=== PATIENT | male | born 1970 | race Caucasian/White ===

== ENCOUNTER → 2016-06-07 | Outpatient (CLI) | payer OTHER ==
[~2016-06-07] MED LIST: ACETAMINOPHEN PO; COUMADIN5 MG PO; COUMADIN7.5 MG PO; FERRO-TIME325 MG PO; FERROUS GLUCON324 M1 PO; FERROUS GLUCON324 MG PO; HYDROCODON-ACE1 EAC7 PO; IBUPROFEN M200 M1 PO; KEFLEX500 M1 PO; LEVAQUIN750 M1 PO; NORCO 10-325 TA1 TAB PO; NORCO1 TAB 10/3 PO; OXYCONTIN PO; PERCOCET10 PO; RIFAMPIN300 M1 PO; TYLENOL325 M1 PO; VANCOMYCIN IV; VANCOMYCIN1.5 GM/251 IV; XARELTO15 MG PO; ZYVOX600 MG PO
--- NOTE | ~2016-06-07 | CO ---
Unit #: [id number] #: [id number] Patient: JOSÉ MIGUEL POWELL [id number] [address] [address] [id number] O MR#: [id number] NAME: JOSÉ MIGUEL POWELL ROOM: Age: 46 Sex: M Admission Date: 06/07/2016 : 1970 Attending Physician: Hay Bloom M.D. Primary Care Physician: No Primary Care Physician Consultation Date: 06/07/2016 CONSULTATION REPORT REASON FOR CONSULTATION Preoperative medical evaluation prior to reimplant left total hip scheduled by Dr. Bloom for 06/12/16. HISTORY OF PRESENT ILLNESS The patient is a 46-year-old male who presents for preprocedural screening for reasons indicated above. He has a history of left total hip replacement with subsequent removal and placement of antibiotic spacer and subsequent right upper extremity cellulitis and right upper extremity DVT secondary to peripherally inserted central catheter line. Per review of the patient's discharge summary from this facility, discharge date 05/03/16, patient's PICC line was removed by interventional radiology and the patient was discharged home on Levaquin 750 mg orally for two weeks based on catheter tip culture positive for Klebsiella pneumoniae sensitive to Levaquin. The patient was also discharged home on Xarelto 10 mg p.o. daily for PICC line associated DVT of the right upper extremity. He continues to take the Xarelto as discharge instructions were to continue this for three months period of time. A culture collected from the patient's left hip on February 29, 2016 was positive for MRSA and the patient was treated with a total of six weeks minus two days of IV vancomycin. The patient was followed by [facility] at that time for a three times daily IV vancomycin infusion. Per review of information on the discharge summary from the last admission, the patient refused [facility] services the last two days of the antibiotic therapy and he was discharged from their service for noncompliance. The patient has no complaints other than left hip area pain today. He has been evaluated by Dr. Bloom and scheduled for the above reference procedure. PAST MEDICAL HISTORY 1. Osteoarthritis. 2. Chronic back pain. 3. Chronic anemia. 4. Right upper extremity PICC line associated DVT, on Xarelto. 5. History of PICC catheter tip Klebsiella pneumoniae infection, treated with two weeks of oral Levaquin upon last discharge. 6. 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 7. History of noncompliance with [facility] home health services for the last two days of IV antibiotic therapy. PAST SURGICAL HISTORY 1. Left hip arthroplasty. 2. Spinal fusion L1 to L5. 3. Right hip fusion. Unit #: [id number] #: [id number] Patient: JOSÉ MIGUEL POWELL 4. Right shoulder surgery. 5. Left knee surgery. 6. Cholecystectomy. 7. Lumbar spacer placed. Please note - patient denies a personal and family history of complications to anesthesia. ALLERGIES No known medication allergies. Denies latex allergies. CURRENT MEDICATIONS 1. Xarelto 20 mg p.o. every evening (need to clarify this dose). Also, order received from Dr. Martinez to discontinue this medication today. 2. Ibuprofen 200 mg p.o. every four hours as needed for pain. 3. Bradford 10/325 mg tablet, one p.o. q.3 hours p.r.n. pain. SOCIAL HISTORY Denies tobacco use, ETOH and illicit drug use. FAMILY HISTORY Per review of Dr. Bloom's office note: Mother - cancer. Father - hypertension and hyperlipidemia. Sister - diabetes. REVIEW OF SYSTEMS The patient complains of chronic low back pain. A ten point review of systems was conducted and otherwise negative except as indicated under History of Present Illness above. PHYSICAL EXAMINATION GENERAL: 46-year-old male awake, alert, in no acute distress. Ambulates without weight bearing on the left lower extremity with crutches. VITAL SIGNS: Temperature 96.2, heart rate 75, respiratory rate 18, blood pressure 145/70. Oxygen saturation 98% on room air. HEENT: Atraumatic, normocephalic. Sclerae anicteric. No discharge from eyes, ears or nares. No preauricular, postauricular, tonsillar or submental anterior or posterior cervical adenopathy. ENDOCRINE: No thyromegaly, thyroid nodules or tenderness. RESPIRATORY: Clear to auscultation in all schmidt bilaterally without wheezes, rhonchi or rales. CARDIOVASCULAR: S1, S2. Regular rate and rhythm without murmur or rub. GI: Bowel sounds positive x4 quadrants. Soft, nontender, nondistended. EXTREMITIES: No edema, cyanosis or clubbing. Strength 5/5 all extremities bilaterally with flexion/extension with exception of left lower extremity which is limited secondary to pain with movement. NEURO: Alert and oriented x3. Speech clear. Cranial nerves II-XII grossly intact. Follows commands. Hand grasp 2+ bilaterally. DIAGNOSTIC STUDIES LABORATORY: WBC 5.3, hemoglobin 11.2, hematocrit 35.3, platelet count 219,000, sed rate 29, WBC 5.3, hemoglobin 11.2, hematocrit 35.3, platelets 219,000. Sodium 136, potassium 4.6, chloride 101, CO2 27, glucose 83, BUN 16, creatinine 0.7, calcium 9.5, AST 71, ALT 67, alkaline phos. 100, bili total 0.5, total protein 8.3, albumin 4.3. Blood type 1+. Antibody screen negative. Unit #: [id number] #: [id number] Patient: JOSÉ MIGUEL POWELL C-reactive protein less than 0.5. Urinalysis negative with culture not indicated. PT 11.5, INR 1.1. MRSA nasal swab report pending at this time. IMAGING: Two-view chest x-ray report pending at this time. CARDIOVASCULAR: 12-lead EKG, date of study 02/29/16 - normal sinus rhythm, normal ECG, confirmed by Dr. Kapoor. IMPRESSION The patient is a 46-year-old male who presents to preprocedure screening for: 1. Preoperative evaluation prior to reimplant left total hip arthroplasty: The patient's Waller Revised Cardiac Risk Index is equal to 0.4%. This represents the patient's perioperative risk of cardiac , fatal or nonfatal myocardial infarction, cardiopulmonary arrest, arrhythmia and/or pulmonary edema. This has been discussed in detail with the patient. He wishes to proceed with surgery as scheduled at this time. The patient tells me that he has tolerated previous operative procedures without incident. 2. Status post removal of infected left total hip, placement of antibiotic spacer 02/29/16: Left hip culture positive for MRSA, status post IV vancomycin x6 weeks minus 2 days of therapy. The patient is afebrile, not hypotensive. WBC is within normal range. Neither tachycardic nor tachypneic today. 3. Recent PICC catheter tip Klebsiella pneumoniae infection, status post treatment with Levaquin by mouth for two weeks total. Final blood cultures collected on 04/30/16 admission x2 - no growth after five days. 4. Recent PICC associated right upper extremity DVT. The patient has been on Xarelto since discharge on May 03. I have discussed this with Dr. Martinez, the original prescribing physician of this medication, and per his order, the patient will discontinue Xarelto today. I have discussed this with the patient and he has verbalized understanding of this information. 5. Chronic anemia: The patient's H and H are stable at this time. 6. History of chronic back pain, controlled. 7. History of noncompliance with [facility] home health services after a previous discharge from this facility. Thank you for allowing us to participate in the care of this patient. Will gladly follow him for postop medical management pending order of Dr. Bloom. Dictated by... Ghazal Worrell A.P.R.N. for Edin Napoles/le TD: 06/08/2016 08:06 JOB #: [id number] Unit #: [id number] #: [id number] Patient: JOSÉ MIGUEL POWELL CONSULTATION REPORT Page 1 of 1 X Ghazal Worrell APRN X CONSULTATION REPORT
--- NOTE | ~2016-06-07 | CR63 ---
[facility] A Service of [facility] & [facility] RADIOLOGY TEXT RESULTS PATIENT: JOSÉ MIGUEL POWELL LOCATION: [facility] : [birth year] UNIT #: [id number] AGE: [address]: Hay Bloom MD SEX: M ORDER DR: [id number] [facility] [address] [place], [place] [address] [id number] O MR#: [id number] Acc #: [id number] NAME: JOSÉ MIGUEL POWELL : 1970 SEX: M STUDY DATE/TIME: 06/07/2016 12:53 UNIT: [facility] ROOM: STUDY DESCRIPTION: CR Chest 2 View Attending Physician: Hay Bloom M.D. Referring Physician: Hay Bloom M.D. Ordering Physician: Hay Bloom M.D. Primary Care Physician: No Primary Care Physician MEDICAL IMAGING REPORT This report is preliminary unless electronic signature is present EXAM 2-view chest INDICATIONS Preoperative evaluation for hip surgery. PROCEDURE Frontal and lateral views of the chest. COMPARISON None. FINDINGS Heart size normal. Lungs clear. No pleural fluid or pneumothorax. IMPRESSION No active process. Dictated by... Antonino Rios M.D. THIS IS AN ELECTRONICALLY VERIFIED REPORT Antonino Rios M.D. at 06/09/2016 7:15 AM UMER/demian TD: 06/07/2016 17:45 JOB #: [id number] MEDICAL IMAGING REPORT Page 1 of 1 COPY
[2016-06-07 11:56] LABS: HEMATOCRIT 35.3 % (38.0-50.0); HEMOGLOBIN 11.2 gm/dL (13.0-16.0); MEAN CELL VOLUME 76.5 FL (83-96); MEAN CORPUSCULAR HEMOGLOBIN 24.2 PG (28-34); MEAN CORPUSCULAR HGB CONC 31.6 g/dL (30-36); MEAN PLATELET VOLUME 7.7 FL (6.5-11.5); RED BLOOD COUNT 4.61 X10e (3.90-5.60); RED CELL DISTRIBUTION WIDTH 16.7 % (11.0-15.5); WHITE BLOOD COUNT 5.3 X10e3 (4.0-10.5)
[2016-06-07 11:59] LABS: URINE APPEARANCE CLEAR; URINE BILIRUBIN NEG (NEG); URINE BLOOD NEG (NEG); URINE COLOR YELLOW; URINE GLUCOSE NEG (NEG); URINE KETONE NEG (NEG); URINE LEUKOCYTE ESTERASE NEG (NEG); URINE NITRATE NEG (NEG); URINE PH 5.5 (5-8); URINE PROTEIN NEG (NEG); URINE SOURCE CLEAN CATCH; URINE SPECIFIC GRAVITY 1.015 (1.003-1.035); URINE UROBILINOGEN 0.2 MG/DL (NEG)
[2016-06-07 12:02] LABS: CULTURE INDICATED? NO
[2016-06-07 12:19] LABS: INR 1.1; PROTHROMBIN TIME (PATIENT) 11.5 SECONDS (9.6-11.5)
[2016-06-07 13:43] LABS: ALBUMIN SERUM 4.3 g/dL (3.5-5.0); ALKALINE PHOSPHATASE 100 U/L (32-92); ALT (SGPT) 67 U/L (10-40); AST (SGOT) 71 U/L (10-42); BILIRUBIN,TOTAL 0.5 mg/dL (0.2-2.0); BLOOD UREA NITROGEN 16 mg/dL (9-23); BUN/CREATININE RATIO 22.85; CALCIUM SERUM 9.5 mg/dL (8.4-10.2); CARBON DIOXIDE 27 mmol/L (22-31); CHLORIDE 101 mmol/L (100-111); CREATININE SERUM 0.7 mg/dL (0.6-1.4); GLOM FILT RATE Estimated ABOVE60 mL/min (>60); GLUCOSE FASTING 83 mg/dL (70-110); POTASSIUM 4.6 mmol/L (3.5-5.1); PROTEIN TOTAL SERUM 8.3 g/dL (6.0-8.3); SODIUM 136 mmol/L (135-145)
== END | disposition home or self-care (01) ==
LOC: CAMB 11:04
PROVIDERS: Orthopaedic Surgery
DX: Z01.818 Encounter for other preprocedural examination (principal); M54.9 Dorsalgia, unspecified; G89.29 Other chronic pain; Z86.14 Personal history of Methicillin resistant Staphylococcus aureus infection
CPT/HCPCS: 36415; 71020; 80053; 81003; 85027; 85610; 85652; 86140; 86850; 86900; 86901; 87070

== ENCOUNTER 2016-06-12 09:46 | Inpatient (IN) | payer OTHER ==
--- NOTE | ~2016-06-12 | DS ---
Unit #: [id number] #: [id number] Patient: JOSÉ MIGUEL POWELL [id number] [address] [address] [id number] I MR#: [id number] NAME: JOSÉ MIGUEL POWELL ROOM: 457 Age: 46 Sex: M Admission Date: 06/12/2016 : 1970 Discharge Date: 06/14/2016 Attending Physician: Hay Bloom M.D. DISCHARGE SUMMARY ADMITTING DIAGNOSIS Resolved left total hip infection. DISCHARGE DIAGNOSIS Resolved left total hip infection. HOSPITAL COURSE On 06/12/2016, Mr. Powell underwent a left total hip reimplant. He tolerated the procedure well. He was transported to the 4th floor. He underwent physical therapy, medical management, and anticoagulation therapy. He is doing well and is ready to be discharged. DISPOSITION Stable at discharge. Discharged to home. DISCHARGE MEDICATIONS Medications on discharge include his routine home medications in addition to Percocet 10/325 and Coumadin 7.5 mg p.o. daily. FOLLOWUP INSTRUCTIONS Mr. Powell is going to be discharged home. PT and INRs to be drawn every Sunday and . Physical therapy is to be done for ambulation and dislocation precautions. The patient will need a followup appointment with Dr. Bloom in 6 weeks. Please call our office for that appointment date and time. Dictated by... Libertad Herrera. for Edin RappF/tigist TD: 06/15/2016 01:35 JOB #: [id number] Unit #: [id number] #: [id number] Patient: JOSÉ MIGUEL POWELL DISCHARGE SUMMARY Page 1 of 1 X Susan Corrigan DISCHARGE SUMMARY
--- NOTE | ~2016-06-12 | OR ---
Unit #: [id number] #: [id number] Patient: JOSÉ MIGUEL POWELL [id number] [facility]. [place], [place] [address] [id number] I MR#: [id number] NAME: JOSÉ MIGUEL POWELL ROOM: 457 Date of Procedure: 06/12/2016 Admission Date: 06/12/2016 Surgeon: Hay Bloom M.D. : 1970 Attending Physician: Hay Bloom M.D. OPERATIVE REPORT PREOPERATIVE DIAGNOSIS Resolved infection, left total left hip. POSTOPERATIVE DIAGNOSIS Resolved infection, left total left hip. PROCEDURE PERFORMED Removal of antibiotic spacer and placement of left total hip. ASSISTANTS Susan Corrigan and Christian Gay. ANESTHESIA General. ESTIMATED BLOOD LOSS About 250. DESCRIPTION OF PROCEDURE The patient was brought to the holding room and given 2 g of Ancef and then 1.5 g of vancomycin. This will be continued postop, but discontinued within 23 hours from the start time of surgery. The patient then had a general anesthetic administered. The patient was placed in decubitus position with the left side up. The left hip was prepped and draped in a sterile fashion. The previous skin incision was opened and subcutaneous dissected away. The fascia was then split and a posterior approach carried out to the hip. Upon entering the hip joint, clear fluid was encountered. This was cultured. We then fragmented the spacer head with an osteotome, removed the fragments, internally rotated the leg and we were able to remove the spacer stem from the canal. Once this was out, the femur was retracted anteriorly. Scar tissue was debrided from around the acetabulum and the acetabulum was reamed with basket reamers up to a 55. A 56 mm Elrama Porocoat Sector II shell was inserted in 40 degrees of abduction and 20 degrees of forward flexion. Two 6.5 cancellous screws were placed through the cup for excellent fixation. Neutral 36 mm trial liner was placed in the cup. We then cleaned the scar tissue out from the proximal femur and the starter reamer was passed down further Reclaim stem. After this was done, we then reamed up to a size 17 x 190. This stem was impacted with an excellent endpoint. We then reamed with a 20 and 24 proximal reamer, but because of the leg lengths, we elected to use a 20 body to give us a shorter offset, so the trial 75, 20 mm body was positioned and locked into place and we found the -2, 36 head to give Unit #: [id number] #: [id number] Patient: JOSÉ MIGUEL POWELL appropriate leg length with good stability. So, the real body was opened, applied to the stem and locked into place. Once this was done, we then opened the -2 head. The real liner had been impacted into the cup. The -2 head was applied and reduced and then the wound was irrigated with Betadine. The periacetabular ropivacaine injection was used and then the wound was closed using 0 Vicryl in the capsule. The fascia was closed with a #1 running Stratafix suture. The subcutaneous was closed with 0 and 2-0 Vicryl and dania in the skin. Dressing applied. Abduction pillow positioned and the general anesthetic was reversed. Dictated by... Edin Rapp/tigist TD: 06/12/2016 22:47 JOB #: [id number] OPERATIVE REPORT Page 1 of 1 X Hay Bloom MD X PROCEDURE OPERATIVE NOTE
--- NOTE | ~2016-06-12 | CR144 ---
[facility] A Service of [facility] RADIOLOGY TEXT RESULTS PATIENT: JOSÉ MIGUEL POWELL LOCATION: [place] [address]- : [birth year] UNIT #: [id number] AGE: [address]: Hay Bloom MD SEX: M ORDER DR: [id number] [facility] [address] [facility]. [place], [place] [address] [id number] I MR#: [id number] Acc #: [id number] NAME: JOSÉ MIGUEL POWELL : 1970 SEX: M STUDY DATE/TIME: 06/12/2016 14:50 UNIT: [facility] ROOM: [facility] STUDY DESCRIPTION: CR Hip 1 View Lt Attending Physician: Hay Bloom M.D. Ordering Physician: Hay Bloom M.D. Primary Care Physician: Primary Care Physician No MEDICAL IMAGING REPORT This report is preliminary unless electronic signature is present EXAM Left hip 2 views HISTORY Postop hip surgery today. Revision arthroplasty. FINDINGS 2 views of the left hip demonstrate total hip arthroplasty with long-stem femoral component. Components appear in satisfactory position. There is a 10 mm bony defect or separation of bone fragments along the lateral subtrochanteric proximal femoral shaft, similar to 03/05/2016. Cerclage wires proximal and distal to the lesser trochanter. Surgical skin dania lateral to the hip. IMPRESSION 1. Total hip arthroplasty with long-stem femoral component. Components are in satisfactory position. 2. Postop changes in the soft tissues lateral to the hip. 3. 10 mm bone defect or separation of bone along the lateral subtrochanteric cortex, similar to 03/05/2016. Dictated by... Pernell Rodriguez M.D. THIS IS AN ELECTRONICALLY VERIFIED REPORT Pernell Rodriguez M.D. at 06/12/2016 11:39 PM DFL/psc TD: 06/12/2016 20:58 JOB #: [id number] MEDICAL IMAGING REPORT [facility] A Service [facility] RADIOLOGY TEXT RESULTS PATIENT: JOSÉ MIGUEL POWELL LOCATION: [address] 457[address]01 : [birth year] UNIT #: [id number] AGE: [address]: Hay Bloom MD SEX: M ORDER DR: Page 1 of 1 COPY
[~2016-06-12 09:46] MED LIST changes: -COUMADIN5 MG PO; -COUMADIN7.5 MG PO; -FERRO-TIME325 MG PO; -FERROUS GLUCON324 M1 PO; -FERROUS GLUCON324 MG PO; -KEFLEX500 M1 PO; -PERCOCET10 PO; -RIFAMPIN300 M1 PO; -TYLENOL325 M1 PO; -VANCOMYCIN1.5 GM/251 IV
[2016-06-12 11:18] LABS: INR 1.1; PROTHROMBIN TIME (PATIENT) 11.3 SECONDS (9.6-11.5)
[2016-06-13 05:09] LABS: HEMOGLOBIN 8.8 gm/dL (13.0-16.0)
[2016-06-13 05:25] LABS: INR 1.2; PROTHROMBIN TIME (PATIENT) 13.1 SECONDS (9.6-11.5)
[2016-06-13 07:25] LABS: CALCIUM SERUM 8.6 mg/dL (8.4-10.2); GLOM FILT RATE Estimated 88.6 mL/min (>60); MAGNESIUM 1.7 mg/dL (1.6-3.0); POTASSIUM 4.6 mmol/L (3.5-5.1)
[2016-06-14 03:25] LABS: HEMATOCRIT 25.3 % (38.0-50.0); HEMOGLOBIN 8.1 gm/dL (13.0-16.0)
[2016-06-14 03:35] LABS: INR 1.5; PROTHROMBIN TIME (PATIENT) 16.4 SECONDS (9.6-11.5)
[2016-06-14 03:49] LABS: BUN/CREATININE RATIO 26.25; CALCIUM SERUM 8.3 mg/dL (8.4-10.2); CREATININE SERUM 0.8 mg/dL (0.6-1.4); GLOM FILT RATE Estimated 105.7 mL/min (>60); POTASSIUM 4.2 mmol/L (3.5-5.1)
[2016-06-14] MEDS ORDERED: PERCOCET10 PO (09:49)
[2016-06-14] MEDS ORDERED: FERROUS GLUCON324 MG PO (09:50)
[2016-06-14] MEDS ORDERED: COUMADIN7.5 MG PO (09:50)
[2016-09-18] MEDS ORDERED: PERCOCET10 PO ×2 (12:55→13:04)
[2016-09-18] MEDS ORDERED: FERRO-TIME325 MG PO (12:56)
== END 2016-06-14 13:59 | disposition home health service (06) | DRG 467 ==
LOC: CSUR 09:46 → CPACUOF 11:40 → C4B 15:35
PROVIDERS: Nurse Practitioner; Orthopaedic Surgery
PROC: 0SPB08Z Removal of Spacer from Left Hip Joint, Open Approach (ICD-10-PCS; 2016-06-12)
PROC: 0SRB02Z Replacement of Left Hip Joint with Metal on Polyethylene Synthetic Substitute, Open Approach (ICD-10-PCS; principal; 2016-06-12 11:30)
DX: Z47.32 Aftercare following explantation of hip joint prosthesis (principal); D62 Acute posthemorrhagic anemia; Z86.14 Personal history of Methicillin resistant Staphylococcus aureus infection; M54.9 Dorsalgia, unspecified; G89.29 Other chronic pain; E83.42 Hypomagnesemia; Z96.642 Presence of left artificial hip joint; Z96.652 Presence of left artificial knee joint; Z86.718 Personal history of other venous thrombosis and embolism
CPT/HCPCS: 73501; 80048; 83735; 85014; 85018; 85610; 87070; 87075; 87205; 94760; 97110; 97116; 97161; 97530; C1713; C1776; J0131; J0171; J0690; J0735; J1100; J1170; J1650; J1885; J2250; J2370; J2405; J2795; J3010; J3370

== ENCOUNTER 2016-06-27 11:01 | Inpatient (IN) | payer OTHER ==
--- NOTE | ~2016-06-27 | OR ---
Unit #: [id number] #: [id number] Patient: JOSÉ MIGUEL POWELL [id number] [address] [place], [place] [address] [id number] I MR#: [id number] NAME: JOSÉ MIGUEL POWELL ROOM: 472 Date of Procedure: 06/27/2016 Admission Date: 06/27/2016 Surgeon: Hay Bloom M.D. : 1970 Attending Physician: Hay Bloom M.D. Referring Physician: Hay Bloom M.D. OPERATIVE REPORT PREOPERATIVE DIAGNOSIS Seroma with persistent drainage, left hip wound. POSTOPERATIVE DIAGNOSIS Seroma with persistent drainage, left hip wound. PROCEDURES PERFORMED Incision and drainage with arthrotomy, poly exchange and head exchange left total hip. ASSISTANTS Susan Corrigan and Marlen Kay. ANESTHESIA General. ESTIMATED BLOOD LOSS About 150 mL. INDICATIONS FOR PROCEDURE The patient was brought to the operating room, given a general anesthetic. His previous dania were removed. He persisted with some clear drainage from the hip. The hip was prepped and draped. The old incision was opened. Immediately, a large amount of clear fluid was encountered. This was cultured. The fascia was split and then we carried out dissection down to the posterior capsule. The capsule was opened. The hip dislocated. The head segment removed. The femur retracted anteriorly. The poly from the previous cup was removed. This was a DePuy cup 56 mm cup size with 36 mm inside diameter and the area was then debrided, irrigated with bacitracin and with Betadine. A new liner was impacted into the cup. We then dried the trunnion and impacted the new femoral head, it was a 36 head. The hip was reduced. Stability appropriate. The wound was then soaked once again with Betadine and bacitracin, irrigated out and then closed using 0 Vicryl in the capsule, running #1 Stratafix suture in the fascia, 0 and 2-0 Vicryl in the subcutaneous, and dania in the skin. assistant professor of nursing, Susan Corrigan was present throughout the entire case. Dictated by... Hay Bloom M.D. Unit #: [id number] #: [id number] Patient: JOSÉ MIGUEL POWELL DLP/modl TD: 06/28/2016 04:41 JOB #: [id number] OPERATIVE REPORT Page 1 of 1 X Hay Bloom MD PROCEDURE OPERATIVE NOTE
--- NOTE | ~2016-06-27 | DS ---
Unit #: [id number] #: [id number] Patient: JOSÉ MIGUEL POWELL [address] [facility]. [place], [place] [address] [id number] I MR#: [id number] NAME: JOSÉ MIGUEL POWELL ROOM: 472 Age: 46 Sex: M Admission Date: 06/27/2016 : 1970 Discharge Date: 06/28/2016 Attending Physician: Hay Bloom M.D. Referring Physician: Hay Bloom M.D. DISCHARGE SUMMARY ADMITTING DIAGNOSIS Left total hip drainage with hematoma. DISCHARGE DIAGNOSIS Left total hip drainage with hematoma. HOSPITAL COURSE On June 27, 2016, Mr. Powell underwent a left total hip I and D. He tolerated the procedure well. He was transported to the fourth floor where he underwent physical therapy, medical management, and anticoagulation therapy. He is doing well and is ready to be discharge. CONDITION ON DISCHARGE Stable. DISPOSITION Discharge home with [facility] to follow. DISCHARGE MEDICATIONS His routine home medications in addition to Coumadin 7.5 mg p.o. daily and Percocet 10/325, at 1 tablet p.o. q.4 hours p.r.n. for pain. FOLLOWUP AND DISCHARGE INSTRUCTIONS 1. Mr. Powell is going to be discharged home. 2. Patient is on Coumadin for DVT prophylaxis. PT-INR is to be drawn every Sunday and . Please call the results to [phone], attention Sherwin. 3. Skin dania are to be discontinued two weeks postop. Please apply Steri-Strips a fourth of an inch apart. 4. White SAIDA hose to be worn during the day and can be removed in the evening. 5. Patient can shower in one week and can drive after seen by Dr. Bloom at the six-week postop appointment. 6. Physical therapy is to be done for dislocation precautions and ambulation. Patient is weightbearing as tolerated. 7. Followup appointment with Dr. Bloom is in four weeks. Please call our office for that appointment date and time. Dictated by... Mohini Herrera for Edin Rapp Unit #: [id number] #: [id number] Patient: JOSÉ MIGUEL POWELL TD: 06/29/2016 21:18 JOB #: [id number] DISCHARGE SUMMARY Page 1 of 1 X Susan Corrigan X DISCHARGE SUMMARY
[~2016-06-27 11:01] MED LIST changes: +COUMADIN7.5 MG PO; +FERROUS GLUCON324 MG PO; +PERCOCET10 PO
[2016-06-27 13:01] LABS: INR 1.3; PROTHROMBIN TIME (PATIENT) 13.7 SECONDS (9.6-11.5)
[2016-06-28] MEDS ORDERED: KEFLEX500 M1 PO (09:11)
[2016-09-18] MEDS ORDERED: PERCOCET10 PO ×2 (12:55→13:04)
[2016-09-18] MEDS ORDERED: FERRO-TIME325 MG PO (12:56)
== END 2016-06-28 10:50 | disposition home health service (06) | DRG 909 ==
LOC: CSUR 11:01 → CPACUOF 17:34 → C4C 18:02
PROVIDERS: Orthopaedic Surgery
PROC: 0SPB0JZ Removal of Synthetic Substitute from Left Hip Joint, Open Approach (ICD-10-PCS; 2016-06-27)
PROC: 0S9B0ZZ Drainage of Left Hip Joint, Open Approach (ICD-10-PCS; 2016-06-27)
PROC: 0SRB02A Replacement of Left Hip Joint with Metal on Polyethylene Synthetic Substitute, Uncemented, Open Approach (ICD-10-PCS; principal; 2016-06-27 13:00)
DX: M96.842 Postprocedural seroma of a musculoskeletal structure following a musculoskeletal system procedure (principal); Z97.8 Presence of other specified devices; Y83.4 Other reconstructive surgery as the cause of abnormal reaction of the patient, or of later complication, without mention of misadventure at the time of the procedure; M96.840 Postprocedural hematoma of a musculoskeletal structure following a musculoskeletal system procedure
CPT/HCPCS: 85610; 87070; 87075; 87205; J0690; J1170; J2250; J2405; J3010; J3370

== ENCOUNTER → 2016-09-18 | Outpatient (CLI) | payer OTHER ==
[~2016-09-18] MED LIST changes: +COUMADIN5 MG PO; +FERRO-TIME325 MG PO; +FERROUS GLUCON324 M1 PO; +KEFLEX500 M1 PO; +RIFAMPIN300 M1 PO; +TYLENOL325 M1 PO; +VANCOMYCIN1.5 GM/251 IV
--- NOTE | ~2016-09-18 | CO ---
Unit #: [id number] #: [id number] Patient: JOSÉ MIGUEL POWELL [id number] [address] [place], [place] [address] [id number] O MR#: [id number] NAME: JOSÉ MIGUEL POWELL ROOM: Age: 46 Sex: M Admission Date: 09/18/2016 : 1970 Attending Physician: Hay Bloom M.D. Primary Care Physician: No Primary Care Physician Consultation Date: 09/18/2016 CONSULTATION REPORT REASON FOR CONSULTATION Preoperative medical evaluation prior to revision left total hip arthroplasty as scheduled by Dr. Bloom for October 02, 2016. HISTORY OF PRESENT ILLNESS The patient is a 46-year-old male that presents to preprocedural screening for the reasons indicated above. The patient has a history of multiple left hip surgeries and presents today for medical clearance prior to left total hip revision arthroplasty. The patient complains of baseline level of pain in the left hip today but has no other complaints. He denies upper chest, upper back, arm, neck, jaw pain, or pressure. Denies shortness of air, dyspnea on exertion, PND, and/or orthopnea. Denies lightheadedness, dizziness, presyncope, syncope, and palpitations. He denies oral wounds. No gum or teeth issues. Denies open wounds on his skin. He has been evaluated by Dr. Bloom and scheduled for the above referenced procedure. PAST MEDICAL HISTORY 1. Denies history of myocardial infarction. Denies a history of congestive heart failure. Denies history of CVA/TIA. Denies history of diabetes. He denies history of acute or chronic kidney disease. 2. Osteoarthritis. 3. Chronic back pain. 4. Chronic anemia. 5. History of MRSA. 6. History of PICC-associated DVT. 7. History of mild transaminitis. PAST SURGICAL HISTORY 1. Repair of fracture left hip, right shoulder and sacrum in the fall of 2001. 2. Left total knee arthroplasty. 3. Cholecystectomy. 4. Removal of left total hip and placement of antibiotic spacer in February 2016. 5. Left hip revision with removal of spacer, June 12, 2016. 6. I and D, left hip, June 27, 2016. 7. Back surgery, several related to fall. 8. Left hip manipulation. Please note, this patient denies a personal and family history of complications to anesthesia. SOCIAL HISTORY Unit #: [id number] #: [id number] Patient: JOSÉ MIGUEL POWELL Denies tobacco, ETOH, and illicit drug use. FAMILY HISTORY Cancer, hypertension, hyperlipidemia, and diabetes. REVIEW OF SYSTEMS A 10-point review of systems is conducted and otherwise negative except as indicated under history of present illness above. ALLERGIES No known medication allergies. Denies latex allergy. CURRENT MEDICATIONS 1. Percocet. 2. Iron. PHYSICAL EXAMINATION GENERAL: A 46-year-old male awake, alert, seated in wheelchair, holding cane in no acute distress. VITAL SIGNS: Temperature 97.7, heart rate 60, respiratory rate 16, blood pressure 113/57, oxygen saturation 96% on room air. HEENT: Atraumatic, normocephalic. Sclerae anicteric. No discharge from eyes, ears, nares. LYMPHATIC: No preauricular, postauricular, tonsillar, submental, anterior, posterior, cervical, supra or infraclavicular adenopathy. ENDOCRINE: No thyromegaly, thyroid nodules, or tenderness. RESPIRATORY: Clear to auscultation in all schmidt bilaterally without wheezes, rhonchi, or rales. CARDIOVASCULAR: S1, S2. Regular rate and rhythm without murmur or rub. GASTROINTESTINAL: Bowel sounds positive x4. Soft, nontender, nondistended. EXTREMITIES: No edema, cyanosis, or clubbing. MUSCULOSKELETAL: Strength 5/5 all extremities bilaterally to flexion/extension. NEUROLOGIC: Alert and oriented x3. Speech clear. Cranial nerves II-XII grossly intact. Follows directions during examination. DIAGNOSTIC STUDIES LABORATORY: WBC 3.2, hemoglobin 10.3, hematocrit 32.4, platelet count 157,000. Sodium 134, potassium 3.8, chloride 104, CO2 of 23, glucose 103, BUN 9, creatinine 0.8, calcium 8.4. AST 90, ALT 65, alkaline phosphatase 130, bilirubin total 0.5, total protein 7.4, albumin 4. Urinalysis: Negative with neither microscopic nor culture indicated. CRP 0.5. PT 11.3, INR 1. MRSA nasal swab report pending at this time. IMAGING: Two-view chest x-ray report, June 07, 2016: Impression - no active process. CARDIOVASCULAR: A 12-lead EKG, September 18, 2016: Normal sinus rhythm. Normal ECG. Confirmed report pending at this time. IMPRESSION The patient is a 46-year-old male who presents to preprocedural screening for: 1. Medical evaluation prior to left total hip revision scheduled by Dr. Bloom. The patient's Waller Revised Cardiac Risk Index is equal to 0.4%. This represents the patient's perioperative risk of fatal or nonfatal myocardial infarction, cardiopulmonary arrest, Unit #: [id number] #: [id number] Patient: JOSÉ MIGUEL POWELL arrhythmia, and/or pulmonary edema. This has been discussed in detail with the patient, and he wishes to proceed with surgery as scheduled at this time. 2. Osteoarthritis. 3. Chronic back pain. 4. Chronic iron-deficiency anemia: The patient has been advised to continue his iron supplement and to take daily. 5. History of methicillin-resistant Staphylococcus aureus. 6. History of peripherally inserted central catheter associated deep venous thrombosis. 7. Mild transaminitis: Recommend recheck liver function tests the a.m. of operating room. 8. Mild hyponatremia. 9. History of multiple left hip surgeries. Thank you for allowing us to participate in the care of this patient. Will gladly follow for postop medical management pending order of Dr. Bloom. Dictated by... Ghazal Worrell A.P.R.N. for Edin Napoles/unruly TD: 09/18/2016 15:41 JOB #: [id number] CONSULTATION REPORT Page 1 of 1 X Ghazal Worrell APRN X CONSULTATION REPORT
--- NOTE | ~2016-09-18 | EKG ---
PATIENT: JOSÉ MIGUEL POWELL UNIT #: [id number] Ventricular Rate: 67 BPM Atrial Rate: 67 BPM P-R Interval: 140 ms QRS Duration: 102 ms Q-T Interval: 424 ms QTC Calculation(Bezet): 448 ms P [place]: 59 degrees Calculated T [place]: 11 degrees Diagnosis Line: Normal sinus rhythm Diagnosis Line: Normal ECG Diagnosis Line: When compared with ECG of 29-FEB-2016 11:05, Diagnosis Line: No significant change was found Diagnosis Line: Confirmed by REGAN ARRINGTON MD ([id number]) on 09/19/2016 Diagnosis Line: 3:25:54 PM INTERPRETING MD: NURY DAVENPORT
[2016-09-18 12:26] LABS: HEMATOCRIT 32.4 % (38.0-50.0); HEMOGLOBIN 10.3 gm/dL (13.0-16.0); MEAN CELL VOLUME 78.1 FL (83-96); MEAN CORPUSCULAR HEMOGLOBIN 24.9 PG (28-34); MEAN CORPUSCULAR HGB CONC 31.9 g/dL (30-36); MEAN PLATELET VOLUME 7.5 FL (6.5-11.5); RED BLOOD COUNT 4.14 X10e (3.90-5.60); RED CELL DISTRIBUTION WIDTH 16.6 % (11.0-15.5); WHITE BLOOD COUNT 3.2 X10e3 (4.0-10.5)
[2016-09-18 12:28] LABS: URINE APPEARANCE CLEAR; URINE BILIRUBIN NEG (NEG); URINE BLOOD NEG (NEG); URINE COLOR YELLOW; URINE GLUCOSE NEG (NEG); URINE KETONE NEG (NEG); URINE LEUKOCYTE ESTERASE NEG (NEG); URINE NITRATE NEG (NEG); URINE PH 5.5 (5-8); URINE PROTEIN NEG (NEG); URINE SPECIFIC GRAVITY 1.023 (1.003-1.035); URINE UROBILINOGEN 0.2 MG/DL (NEG)
[2016-09-18 12:31] LABS: CULTURE INDICATED? NO; URINE SOURCE CLEAN CATCH
[2016-09-18 12:39] LABS: PROTHROMBIN TIME (PATIENT) 11.3 SECONDS (10.0-11.7)
[2016-09-18 13:01] LABS: BILIRUBIN,TOTAL 0.5 mg/dL (0.2-2.0); BUN/CREATININE RATIO 11.25; CALCIUM SERUM 8.4 mg/dL (8.4-10.2); CREATININE SERUM 0.8 mg/dL (0.6-1.4); GLOM FILT RATE Estimated 105.7 mL/min (>60); POTASSIUM 3.8 mmol/L (3.5-5.1); PROTEIN TOTAL SERUM 7.4 g/dL (6.0-8.3)
== END | disposition home or self-care (01) ==
LOC: CAMB 11:44 → EDSTATUS 12:00
PROVIDERS: Orthopaedic Surgery
DX: Z01.818 Encounter for other preprocedural examination (principal); T84.021A Dislocation of internal left hip prosthesis, initial encounter; M54.9 Dorsalgia, unspecified; G89.29 Other chronic pain; Z87.828 Personal history of other (healed) physical injury and trauma; Z86.14 Personal history of Methicillin resistant Staphylococcus aureus infection
CPT/HCPCS: 36415; 80053; 81003; 85027; 85610; 85652; 86140; 86850; 86900; 86901; 87070; 93005

== ENCOUNTER 2016-10-02 08:57 | Inpatient (IN) | payer OTHER ==
[~2016-10-02] VITALS: Ht 185.4 cm; Wt 116.9 kg
--- NOTE | ~2016-10-02 | CR144 ---
[facility] A Service of [facility] RADIOLOGY TEXT RESULTS PATIENT: JOSÉ MIGUEL POWELL LOCATION: C4B 451-01 : [birth year] UNIT #: [id number] AGE: [address]: Hay Bloom MD SEX: M ORDER DR: [id number] [facility]. [place], [place] [address] [id number] I MR#: [id number] Acc #: [id number] NAME: JOSÉ MIGUEL POWELL : 1970 SEX: M STUDY DATE/TIME: 10/02/2016 14:06 UNIT: [facility] ROOM: [facility] STUDY DESCRIPTION: CR Hip 1 View Lt Attending Physician: Hay Bloom M.D. Ordering Physician: Hay Bloom M.D. Primary Care Physician: Primary Care Physician No MEDICAL IMAGING REPORT This report is preliminary unless electronic signature is present EXAM Left hip, AP HISTORY Hip pain today. Recent hip replacement. FINDINGS AP radiograph of the left hip demonstrates total hip arthroplasty with long stem femoral component. There is a lucency about the component-bone interface along the proximal 8.5 cm of the femoral component, particularly along its medial margin. The medial margin of the proximal cerclage wire is from the underlying bone by nearly 1 cm. Small amount of soft tissue gas along the lateral margin of the hip. Surgical skin dania along the lateral hip. IMPRESSION 1. Total hip arthroplasty with long stem femoral component. There is lucency at the junction of the femoral prosthetic implant and bone along the proximal margin of the femoral component over a length of nearly 9 cm. 2. The medial margin of the proximal cerclage wire is from the underlying bone by approximately 1 cm. 3. Hip alignment is satisfactory. 4. Small amount of soft tissue gas along the lateral margin of the hip. Dictated by... Pernell Rodriguez M.D. THIS IS AN ELECTRONICALLY VERIFIED REPORT Pernell Rodriguez M.D. at 10/03/2016 2:14 PM [facility] A Service of [facility] RADIOLOGY TEXT RESULTS PATIENT: JOSÉ MIGUEL POWELL LOCATION: C4B 451-01 : [birth year] UNIT #: [id number] AGE: [address]: Hay Bloom MD SEX: M ORDER DR: LIONEL/christopher TD: 10/03/2016 07:46 JOB #: [id number] MEDICAL IMAGING REPORT Page 1 of 1 COPY
--- NOTE | ~2016-10-02 | OR ---
Unit #: [id number] #: [id number] Patient: JOSÉ MIGUEL POWELL [id number] [facility]. [place], [place] [address] [id number] I MR#: [id number] NAME: JOSÉ MIGUEL POWELL ROOM: 451 Date of Procedure: 10/02/2016 Admission Date: 10/02/2016 Surgeon: Hay Bloom M.D. : 1970 Attending Physician: Hay Bloom M.D. Primary Care Physician: Primary Care Physician No OPERATIVE REPORT PREOPERATIVE DIAGNOSIS Recurrent dislocation, status post revision, left total hip. POSTOPERATIVE DIAGNOSIS Recurrent dislocation, status post revision, left total hip. PROCEDURE PERFORMED Revision of acetabular liner and head to a tripolar construct. CONFIGURATION MANAGER Catrachito. ANESTHESIA General. ESTIMATED BLOOD LOSS 200 mL. SPECIMENS Cultures. DESCRIPTION OF PROCEDURE The patient was brought to the operating room, given a general anesthetic. He had been given 2 g of Ancef and 2000 mg of vancomycin preoperatively. He was brought back to the operating room, given a general anesthetic, placed in decubitus position with the left side up. Left hip was prepped and draped in a sterile fashion. The previous skin incision was used and posterior approach was carried out to the hip. After the hip was approached, then the posterior pseudocapsule was opened. Fluid was encountered. This was bloody from his last dislocation. This was cultured. We then dislocated the hip posteriorly. The femoral component appeared to be well fixed and was in good position. The head was removed. We then retracted this anteriorly and the patient had the previous liner removed from the cup. It was a 56 mm acetabular component. We elected to go to the tripolar component, so the +4, 10-degree 40 mm inside diameter liner was used for the 56 cup. This was impacted into place. He had a -2 head on the other side. This leg was slightly short, so we went to a +1.5, 28 head with a 40 mm bipolar self-centering component. The 28 head was placed in the poly. The poly snapped into the bipolar shell. This assembly was placed on the trunnion and impacted. The hip was reduced. Stability was excellent in all directions. The local ropivacaine mixture was injected. We then reduced the hip. The hip was irrigated with a Unit #: [id number] #: [id number] Patient: JOSÉ MIGUEL POWELL dilute Betadine solution and then bacitracin. The capsule was closed with 0 Vicryl. The fascia was closed with a running #1 Stratafix suture and the subcutaneous was closed with 0 and 2-0 Vicryl and dania in the skin. Sterile dressing applied and the abduction pillow was positioned. admissions assistant, Domingo Winston was present throughout the entire case. Dictated by... Edin Rapp/tigist TD: 10/02/2016 14:34 JOB #: [id number] OPERATIVE REPORT Page 1 of 1 X Hay Bloom MD X PROCEDURE OPERATIVE NOTE
--- NOTE | ~2016-10-02 | DS ---
Unit #: [id number] #: [id number] Patient: JOSÉ MIGUEL POWELL [id number] [facility]. [place], [place] [address] [id number] I MR#: [id number] NAME: JOSÉ MIGUEL POWELL ROOM: [facility] Age: 46 Sex: M Admission Date: 10/02/2016 : 1970 Discharge Date: 10/03/2016 Attending Physician: Hay Bloom M.D. Primary Care Physician: Primary Care Physician No DISCHARGE SUMMARY ADMITTING DIAGNOSIS Unstable left total hip. PROCEDURES IN HOSPITAL Revision femoral head and acetabular liner to a tripolar type of device. HOSPITAL COURSE The patient was admitted on 10/02, taken to the operating room, where he underwent the above procedure. Postoperatively, he had a fair amount of discomfort last night, but it is better this morning. He was on Percocet 10 at home . His neurovascular exam is intact. His hemoglobin is 9.8. His INR is 1.2 today. He will be discharged home today on Coumadin 10 mg and Percocet 10/325 for pain. His weightbearing is tolerated. He is to follow his hip precautions and he will follow up in the office in 4 or 5 weeks. We will check his protime again tomorrow and Sunday. Dictated by... Edin Rapp/tigist TD: 10/06/2016 08:26 JOB #: [id number] DISCHARGE SUMMARY Page 1 of 1 X Hay Bloom MD X DISCHARGE SUMMARY
[~2016-10-02 08:57] MED LIST changes: -COUMADIN5 MG PO; -FERROUS GLUCON324 M1 PO; -RIFAMPIN300 M1 PO; -TYLENOL325 M1 PO; -VANCOMYCIN1.5 GM/251 IV
[2016-10-02 10:38] LABS: PROTHROMBIN TIME (PATIENT) 10.9 SECONDS (10.0-11.7)
[2016-10-02 11:01] LABS: CHOLESTEROL 131 mg/dL (0-200); HDL CHOLESTEROL 38 mg/dL (29-75); LDL CHOLESTEROL 80 mg/dL ([, -130]); LDL/HDL RATIO 2 RATIO (0-4); SODIUM 138 mmol/L (135-145); TRIGLYCERIDES 63 mg/dL (10-160)
[2016-10-03 03:15] LABS: HEMATOCRIT 30.7 % (38.0-50.0); HEMOGLOBIN 9.8 gm/dL (13.0-16.0)
[2016-10-03 03:28] LABS: INR 1.2; PROTHROMBIN TIME (PATIENT) 12.5 SECONDS (10.0-11.7)
[2016-10-03 03:31] LABS: ALBUMIN SERUM 3.1 g/dL (3.5-5.0); BILIRUBIN,TOTAL 0.5 mg/dL (0.2-2.0); CALCIUM SERUM 8.3 mg/dL (8.4-10.2); GLOM FILT RATE Estimated 88.6 mL/min (>60); MAGNESIUM 1.8 mg/dL (1.6-3.0); POTASSIUM 4.2 mmol/L (3.5-5.1); PROTEIN TOTAL SERUM 5.8 g/dL (6.0-8.3)
[2016-10-03] MEDS ORDERED: COUMADIN5 MG PO (09:53)
== END 2016-10-03 11:19 | disposition home health service (06) | DRG 468 ==
LOC: CSUR 08:57 → CPACUOF 09:07 → CSUR 11:00 → CPACUOF 13:00 → C4B 14:55 → CPACUOF 14:55 → C4B 10-03 11:19
PROVIDERS: Orthopaedic Surgery
PROC: 0SPB09Z Removal of Liner from Left Hip Joint, Open Approach (ICD-10-PCS; 2016-10-02)
PROC: 0SUE09Z Supplement Left Hip Joint, Acetabular Surface with Liner, Open Approach (ICD-10-PCS; 2016-10-02)
PROC: 0SPB0JZ Removal of Synthetic Substitute from Left Hip Joint, Open Approach (ICD-10-PCS; 2016-10-02)
PROC: 0SRB0JZ Replacement of Left Hip Joint with Synthetic Substitute, Open Approach (ICD-10-PCS; principal; 2016-10-02 11:00)
DX: T84.021A Dislocation of internal left hip prosthesis, initial encounter (principal); Z96.642 Presence of left artificial hip joint; G89.29 Other chronic pain; Z96.652 Presence of left artificial knee joint; Z86.14 Personal history of Methicillin resistant Staphylococcus aureus infection; K21.9 Gastro-esophageal reflux disease without esophagitis; M54.9 Dorsalgia, unspecified
CPT/HCPCS: 73501; 80053; 80061; 83735; 84295; 85014; 85018; 85610; 87070; 87075; 87205; 94010; 94760; 97110; 97116; 97161; C1776; G8978-GP; G8979-GP; G8980-GP; J0171; J0690; J0735; J1100; J1170; J1885; J2250; J2270; J2405; J2795; J3010; J3370

== ENCOUNTER 2016-10-12 19:30 | Inpatient (IN) | payer OTHER ==
[~2016-10-12] VITALS: Ht 188 cm; Wt 116.9 kg
--- NOTE | ~2016-10-12 | HP ---
Unit #: [id number] #: [id number] Patient: JOSÉ MIGUEL LANCASTER [id number] [address] [place], [place] [address] [id number] I MR#: [id number] NAME: JOSÉ MIGUEL LANCASTER ROOM: 462 Age: 46 Sex: M Admission Date: 10/12/2016 : 1970 Attending Physician: Hay Bloom M.D. Primary Care Physician: No Primary Care Physician HISTORY AND PHYSICAL HISTORY Mr. Lancaster is a 46-year-old gentleman who has had multiple problems with his left hip. He subsequently had a revision about two weeks ago for recurrent dislocation. He then developed fevers and chills, came to the emergency room and was subsequently admitted for infected left hip. He states that he has had some problems for the last week or so with increasing pain. He has a long history of infection in the left hip. In fact a few years ago, I removed a total hip. He had a spacer for a period of time. The infection seemed to clear and his hip was re-implanted. He did well until he dislocated twice and was subsequently revised his hip and has had this problem since. His past medical history reveals he lives at home with his girlfriend. He has no known allergies. He denies the use of tobacco or alcohol. MEDICATIONS His medications include only OxyContin. REVIEW OF SYSTEMS His review of systems is positive only for his orthopedic complaints in his left hip. He denies blurred vision, loss of consciousness, recurrent headaches. He denies shortness of breath or hemoptysis. He denies chest pain. He denies nausea, vomiting, diarrhea. No burning on urination. Denies numbness or weakness in his extremities. PHYSICAL EXAMINATION GENERAL: His exam reveals that he is alert, awake, oriented x3. He is a fair amount of pain coming from his left hip. VITAL SIGNS: He has had a temperature of 102 prior to admission, but his highest temperature here has been 99 to 99.8. HEENT: His pupils are equal, round, and reactive. Extraocular movements are full. Throat is not injected. NECK: Supple. HEART: Regular rate. No large gallops, murmurs. LUNGS: Clear. ABDOMEN: Benign with positive bowel sounds. NEURO: Normal. Orthopedically, he has purulent drainage from his left hip wound. His neurovascular exam is intact in the left leg. IMPRESSION He has an infected left total hip and the plan will be for incision and drainage, poly exchange, and consultation with infectious disease. Unit #: [id number] #: [id number] Patient: JOSÉ MIGUEL LANCASTER Dictated by Edin Rapp/unruly TD: 10/15/2016 10:25 JOB #: [id number] HISTORY AND PHYSICAL Page 1 of 1 X Hay Bloom MD X HISTORY AND PHYSICAL
--- NOTE | ~2016-10-12 | DS ---
Unit #: [id number] #: [id number] Patient: JOSÉ MIGUEL POWELL [id number] [facility]. [place], [place] [address] [id number] I MR#: [id number] NAME: JOSÉ MIGUEL POWELL ROOM: 462 Age: 46 Sex: M Admission Date: 10/12/2016 : 1970 Discharge Date: 10/16/2016 Attending Physician: Hay Bloom M.D. Primary Care Physician: No Primary Care Physician DISCHARGE SUMMARY ADMITTING DIAGNOSIS Left hip infection. PROCEDURE Left hip I and D and poly exchange. HOSPITAL COURSE The patient was admitted to [facility] with drainage of left hip. The patient had undergone the above procedure. The patient tolerated the procedure well. The patient is planning on going home later today. Temperature is 98.8, blood pressure 123/55, heart rate is 82 and regular, respirations 18. The incision is healing well. Neurovascular exam is intact. We will pull the Hemovac today. DISPOSITION Home with home health. DISCHARGE MEDICATIONS Medications per med rec list. He will be on IV and postop antibiotic for six weeks and also Coumadin for 30 days plus his regular home medications. FOLLOWUP INSTRUCTIONS The patient will follow up with infectious disease per their recommendations. The patient will follow up with Dr. Bloom in four to six weeks. The patient will need SAIDA hose during the day and off at night. The patient will need the dania removed two weeks postoperatively, then Steri-Strips placed. Patient is weightbearing as tolerated. Dictated by... Domingo Winston P.A.-C- for Edin Rapp TD: 10/16/2016 08:57 JOB #: [id number] Unit #: [id number] #: [id number] Patient: JOSÉ MIGUEL POWELL DISCHARGE SUMMARY Page 1 of 1 X X DISCHARGE SUMMARY
--- NOTE | ~2016-10-12 | CR144 ---
[facility] A Service of [facility] RADIOLOGY TEXT RESULTS PATIENT: JOSÉ MIGUEL POWELL LOCATION: [facility]2-01 : [birth year] UNIT #: [id number] AGE: [address]: Hay Bloom MD SEX: M ORDER DR: [id number] [facility] [address] [facility]. [place], [place] [address] [id number] I MR#: [id number] Acc #: [id number] NAME: JOSÉ MIGUEL POWELL : 1970 SEX: M STUDY DATE/TIME: 10/14/2016 9:42 UNIT: [facility] ROOM: 2 STUDY DESCRIPTION: CR Hip 1 View Lt Attending Physician: aHy Bloom M.D. Ordering Physician: Hay Bloom M.D. Primary Care Physician: Primary Care Physician No MEDICAL IMAGING REPORT This report is preliminary unless electronic signature is present EXAM Left hip single view INDICATIONS Postop from left hip surgery. COMPARISON 10/02/2016 FINDINGS Since the previous study the patient has had a cerclage wire removed from around the arthroplasty. A surgical drain is in place. The alignment is normal. No other changes are seen. IMPRESSION Postop changes as described Dictated by... Dariusz Mitchell M.D. THIS IS AN ELECTRONICALLY VERIFIED REPORT Dariusz Mitchell M.D. at 10/15/2016 9:03 AM REED/demian TD: 10/14/2016 23:57 JOB #: [id number] MEDICAL IMAGING REPORT Page 1 of 1 COPY
--- NOTE | ~2016-10-12 | XA75 ---
[facility] A Service of [facility] RADIOLOGY TEXT RESULTS PATIENT: JOSÉ MIGUEL POWELL LOCATION: [facility] 462-01 : [birth year] UNIT #: [id number] AGE: [address]: Hay Bloom MD SEX: M ORDER DR: [id number] [facility] [place] [facility]. [place], [place] [address] [id number] I MR#: [id number] Acc #: [id number] NAME: JOSÉ MIGUEL POWELL : 1970 SEX: M STUDY DATE/TIME: 10/13/2016 11:43 UNIT: [facility] ROOM: 2 STUDY DESCRIPTION: XA CVC Non-Tunnel Attending Physician: Hay Bloom M.D. Ordering Physician: Hay Bloom M.D. Primary Care Physician: No Primary Care Physician MEDICAL IMAGING REPORT This report is preliminary unless electronic signature is present EXAM Central line placement HISTORY Mr. Powell is a 46-year-old man with a history of left knee hip arthroplasty. He underwent revision of this left hip arthroplasty October 14, 2016 and requires IV access. PROCEDURE The procedure was explained to the patient including risks, benefits, potential complications, and potential for alternative forms treatment. Informed consent was obtained and prior to initiating the procedure, a formal time-out procedure was performed. Initially, a PICC line was requested. Patient's right arm was initially attempted using all elements of maximal sterile barrier technique including hand hygiene, caps, sterile gowns, and gloves and masks. The right arm was prepped with 2% Chlorhexidine for cutaneous antisepsis and covered with a large sterile sheet. The ultrasound probe was covered with sterile probe cover and sterile gel was applied. Real-time sterile ultrasound guidance was used to localize a right upper extremity vein which was found to be patent and compressible. Hard copy ultrasound image was obtained. After localization with 1% Xylocaine, the vein was punctured using real-time sterile ultrasound guidance and an 0.018 guidewire was advanced but could only be advanced as far as the right axilla. This patient has had a prior history of a right-sided PICC line which became imbedded and clot and had to be removed under fluoroscopy. This prior PICC was located on the right and the patient has had a prior history of DVT involving the right subclavian, axillary, and brachial veins. As a consequence, I abandoned efforts on the right and made multiple attempts on the left, all without success. I could access the veins, I was unable to thread a wire through the patient's somewhat small caliber veins. [facility] A Service of [facility] RADIOLOGY TEXT RESULTS PATIENT: JOSÉ MIGUEL POWELL LOCATION: [facility] 462-01 : [birth year] UNIT #: [id number] AGE: [address]: Hay Bloom MD SEX: M ORDER DR: At this point, grafting I opted for a central line placement. Using all elements of maximal sterile barrier technique including hand hygiene, caps, sterile gowns, and gloves and masks, the right neck was prepped with 2% Chlorhexidine for cutaneous antisepsis and covered with a large sterile sheet. The ultrasound probe was covered with a sterile probe cover and sterile gel was applied. Real-time sterile ultrasound guidance was used to localize the left internal jugular vein which was found to be patent and compressible. A hard copy ultrasound image was obtained. After localization with 1% Xylocaine, the vein was punctured using real-time sterile ultrasound guidance and an 0.018 guidewire was advanced into the superior vena cava under fluoroscopic guidance. Micropuncture sheath was placed and a J-wire was advanced into the right atrium. The tract was dilated and a new triple-lumen central venous line was advanced over the wire and positioned within the right atrium. Following placement of the catheter, it flushed and aspirated easily and its position was confirmed with a radiographic image. It was secured using two 2-0 silk sutures. Total fluoroscopy time was 0.2 minutes. AK was 5 mGy. IMPRESSION 1. Successful placement of a left internal jugular vein central venous line which terminates within the superior vena cava. This catheter is ready for immediate use. 2. Multiple attempts were made on both sides for PICC line placement. None of these were successful due to inability to thread the wire. At this point, the patient is not a PICC line candidate. Dictated by... Linda Zamora.D. THIS IS AN ELECTRONICALLY VERIFIED REPORT Sherita Caballero M.D. at 10/16/2016 5:06 PM CLARITZA/donna TD: 10/16/2016 14:11 JOB #: [id number] MEDICAL IMAGING REPORT Page 1 of 1 COPY
--- NOTE | ~2016-10-12 | XA93 ---
[facility] RADIOLOGY TEXT RESULTS PATIENT: JOSÉ MIGUEL POWELL LOCATION: [facility] 462-01 : [birth year] UNIT #: [id number] AGE: [address]: Hay Bloom MD SEX: M ORDER DR: [id number] [facility]. [place], [place] [address] [id number] MR#: [id number] Acc #: [id number] NAME: JOSÉ MIGUEL POWELL : 1970 SEX: M STUDY DATE/TIME: 10/16/2016 12:07 UNIT: [facility] ROOM: 2 STUDY DESCRIPTION: XA CVC Tunneled WO Pump/Port Attending Physician: Hay Bloom M.D. Ordering Physician: Prasanna Parra M.D. Primary Care Physician: Primary Care Physician No MEDICAL IMAGING REPORT This report is preliminary unless electronic signature is present EXAM Tunneled PICC placement HISTORY Mr. Powell is a 46-year-old patient who underwent left hip surgery on October 14, 2016. He underwent attempted PICC placement on October 13, 2016. Despite multiple attempts, the PICC line could not be placed on either side due to inability to thread the wire. Patient has had a prior history of a PICC line which became embedded within some clot within the right axillary vein and which had to be removed under fluoroscopy. At this point I do not feel this patient is a candidate for PICC line placement. He required a longer term IV access and tunneled PICC was requested. FINDINGS The procedure was explained to the patient including risks, benefits and potential complications potential for alternative forms of treatment informed consent was obtained and prior to initiating the procedure a formal time-out procedure was performed. Using all elements of maximal sterile barrier technique including hand hygiene caps sterile gowns and gloves and masks the right neck was prepped with 2% Chlorhexidine cutaneous antisepsis and covered with large sterile sheet. The ultrasound probe was covered with a sterile probe cover and sterile gel was applied. Real-time sterile ultrasound guidance was used to localize the right internal jugular vein which was found to be patent and compressible. A hard copy ultrasound image was obtained after local anesthesia with 1% Xylocaine the vein was punctured using real-time sterile ultrasound guidance and an 0.018 guidewire was advanced into the superior vena cava under fluoroscopic guidance micropuncture sheath was placed and an additional longer 0.018 wire was advanced into the right atrium and peel-away sheath was placed. The skin and subcutaneous tissues of the right anterolateral chest wall were anesthetized with lidocaine and lidocaine with epinephrine. The patient reported significant pain with STS. [facility] A Service of [facility] RADIOLOGY TEXT RESULTS PATIENT: JOSÉ MIGUEL POWELL LOCATION: [facility] 462-01 : [birth year] UNIT #: [id number] AGE: [address]: Hay Bloom MD SEX: M ORDER DR: administration of lidocaine, although he had previously tolerated its administration during PICC line placement the other day. Ultimately the patient received a total of 7 mg of Versed and 150 mcg of fentanyl during this procedure. After the right anterolateral chest wall was anesthetized small skin incision was made and the catheter was tunneled up through the right anterolateral chest wall to the insertion site at the neck catheter was measured and trimmed and was advanced through the peel-away sheath and positioned within the superior vena cava. Following placement of the catheter it flushed and aspirated easily. Its position was confirmed with a radiographic image. It was secured using two 2-0 silk sutures and the skin incision was closed using single 4-0 Monocryl suture and Dermabond. Total fluoroscopy time was 0.3 minutes AK was 2 mGy. IMPRESSION 1. Successful placement of a right internal jugular vein tunneled PICC which terminates within the superior vena cava. This catheter is ready for immediate use. Ultrasound and fluoroscopy were used for placement of the catheter and permanent images were saved 2. This patient required 7 mg of Versed and 150 mcg of fentanyl for completion of this procedure. He also received significant amounts both lidocaine and lidocaine with epinephrine. He reported significant pain with the lidocaine administration although he had previously tolerated in the past. At this point I would suggest that any further procedures on this patient be performed with the assistance of anesthesia and this would include the removal of this catheter. Dictated by... Sherita Caballero M.D. THIS IS AN ELECTRONICALLY VERIFIED REPORT Sherita Caballero M.D. at 10/18/2016 4:53 PM CLARITZA/demian TD: 10/17/2016 13:26 JOB #: [id number] MEDICAL IMAGING REPORT Page 1 of 1 COPY
--- NOTE | ~2016-10-12 | OR ---
Unit #: [id number] #: [id number] Patient: JOSÉ MIGUEL POWELL [id number] [facility]. [id number] [facility]. [place], [place] [address] [id number] Mary MR#: [id number] NAME: JOSÉ MIGUEL POWELL ROOM: 462 Date of Procedure: 10/14/2016 Admission Date: 10/12/2016 Surgeon: Hay Bloom M.D. : 1970 Attending Physician: Hay Bloom M.D. OPERATIVE REPORT PREOPERATIVE DIAGNOSIS Infected left total hip. POSTOPERATIVE DIAGNOSIS Infected left total hip. PROCEDURE PERFORMED I and D of left hip with head and liner exchange. [employer] Victor Hugo. ANESTHESIA General. BLOOD LOSS 350. 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 He was converted to a tripolar construct and then he has developed pain, swelling and some drainage with temperatures to 102 and has an obvious infection of his left hip. He is brought to the operating room for I and D and poly and head exchange. DESCRIPTION OF PROCEDURE The patient was brought to the operating room and given a general anesthetic. She was already on IV antibiotics. He was placed in decubitus position with the left side up. The dania from his previous surgery were removed. The hip was prepped and draped with Betadine and then the previous skin incision was opened. There was obvious purulence present. This was irrigated and debrided. Cultures were obtained. We then debrided the soft tissues as completely as possible. The fascia had opened. This extended down to the joint. We then dislocated the hip and removed the head and bipolar component, retracted the femur anteriorly and removed the poly from the cup. After this was done, this area was debrided as completely as possible. We then soaked the wound with a dilute Betadine solution for 4-5 minutes, let it rest in the wound and then this was evacuated and it was irrigated with 3000 mL of bacitracin fluid. We then placed a new liner in the cup. The new bipolar head assembly was opened, assembled, applied to the trunnion, impacted and then the bipolar was reduced into the poly liner in the cup. The patient then Unit #: [id number] #: [id number] Patient: JOSÉ MIGUEL POWELL had the wound irrigated once again. A drain was positioned. The fascia was closed with 0 Vicryl, the subcutaneous was closed with 0 and 2-0 Vicryl. The skin edges were debrided sharply and then closed with 2-0 Vicryl and dania. Sterile dressing was applied and the abduction pillow positioned and the patient's general anesthetic reversed and he was transferred to his bed. Dictated by... Edin Rapp/tigist TD: 10/14/2016 09:34 JOB #: [id number] OPERATIVE REPORT Page 1 of 1 X Hay Bloom MD X PROCEDURE OPERATIVE NOTE
[~2016-10-12 19:30] MED LIST changes: +COUMADIN5 MG PO
[2016-10-13 02:58] LABS: HEMATOCRIT 33.9 % (38.0-50.0); HEMOGLOBIN 10.6 gm/dL (13.0-16.0); MEAN CELL VOLUME 78.3 FL (83-96); MEAN CORPUSCULAR HEMOGLOBIN 24.4 PG (28-34); MEAN CORPUSCULAR HGB CONC 31.2 g/dL (30-36); MEAN PLATELET VOLUME 7.4 FL (6.5-11.5); RED BLOOD COUNT 4.33 X10e (3.90-5.60); RED CELL DISTRIBUTION WIDTH 16.6 % (11.0-15.5); WHITE BLOOD COUNT 11.6 X10e3 (4.0-10.5)
[2016-10-13 03:15] LABS: INR 2.7
[2016-10-13 03:21] LABS: BUN/CREATININE RATIO 11.53; CREATININE SERUM 1.3 mg/dL (0.6-1.4); GLOM FILT RATE Estimated 64.5 mL/min (>60); POTASSIUM 3.7 mmol/L (3.5-5.1); PROTHROMBIN TIME (PATIENT) 29.2 SECONDS (10.0-11.7)
[2016-10-15 05:51] LABS: HEMATOCRIT 24.3 % (38.0-50.0); HEMOGLOBIN 8.1 gm/dL (13.0-16.0); MEAN CELL VOLUME 77.4 FL (83-96); MEAN CORPUSCULAR HEMOGLOBIN 25.9 PG (28-34); MEAN CORPUSCULAR HGB CONC 33.4 g/dL (30-36); MEAN PLATELET VOLUME 7.4 FL (6.5-11.5); RED BLOOD COUNT 3.14 X10e (3.90-5.60); RED CELL DISTRIBUTION WIDTH 16.6 % (11.0-15.5); WHITE BLOOD COUNT 5.3 X10e3 (4.0-10.5)
[2016-10-15 06:00] LABS: INR 1.2
[2016-10-15 06:14] LABS: PROTHROMBIN TIME (PATIENT) 13.2 SECONDS (10.0-11.7)
[2016-10-15 06:47] LABS: CALCIUM SERUM 8.1 mg/dL (8.4-10.2); GLOM FILT RATE Estimated 88.6 mL/min (>60); POTASSIUM 3.5 mmol/L (3.5-5.1)
[2016-10-16 03:17] LABS: HEMATOCRIT 24.6 % (38.0-50.0); HEMOGLOBIN 8.2 gm/dL (13.0-16.0); MEAN CELL VOLUME 76.9 FL (83-96); MEAN CORPUSCULAR HEMOGLOBIN 25.6 PG (28-34); MEAN CORPUSCULAR HGB CONC 33.2 g/dL (30-36); RED BLOOD COUNT 3.2 X10e (3.90-5.60); RED CELL DISTRIBUTION WIDTH 16.8 % (11.0-15.5); WHITE BLOOD COUNT 3.5 X10e3 (4.0-10.5)
[2016-10-16 03:32] LABS: INR 1.2; PROTHROMBIN TIME (PATIENT) 12.8 SECONDS (10.0-11.7)
[2016-10-16 03:43] LABS: ALBUMIN SERUM 2.5 g/dL (3.5-5.0); BILIRUBIN,TOTAL 0.5 mg/dL (0.2-2.0); BUN/CREATININE RATIO 17.5; CREATININE SERUM 0.8 mg/dL (0.6-1.4); GLOM FILT RATE Estimated 105.7 mL/min (>60); POTASSIUM 3.7 mmol/L (3.5-5.1); PROTEIN TOTAL SERUM 6.1 g/dL (6.0-8.3)
[2016-10-16] MEDS ORDERED: TYLENOL325 M1 PO (16:40)
[2016-10-16] MEDS ORDERED: RIFAMPIN300 M1 PO (16:40)
[2016-10-16] MEDS ORDERED: COUMADIN7.5 MG PO (16:41)
[2016-10-16] MEDS ORDERED: FERROUS GLUCON324 M1 PO (16:42)
[2016-10-16] MEDS ORDERED: PERCOCET10 PO (16:43)
[2016-10-16] MEDS ORDERED: VANCOMYCIN1.5 GM/251 IV (16:48)
== END 2016-10-16 17:40 | disposition home health service (06) | DRG 468 ==
LOC: C4C 19:30 → CEDOF 19:30 → UNDOADMIN 21:09 → C4C 21:09
PROVIDERS: Internal Medicine Infectious Disease; Orthopaedic Surgery; Specialist
PROC: 0SUS09Z Supplement Left Hip Joint, Femoral Surface with Liner, Open Approach (ICD-10-PCS; 2016-10-14)
PROC: 0SRS0JZ Replacement of Left Hip Joint, Femoral Surface with Synthetic Substitute, Open Approach (ICD-10-PCS; 2016-10-14)
PROC: 0SPS0JZ Removal of Synthetic Substitute from Left Hip Joint, Femoral Surface, Open Approach (ICD-10-PCS; 2016-10-14)
PROC: 0SPB09Z Removal of Liner from Left Hip Joint, Open Approach (ICD-10-PCS; principal; 2016-10-14 07:30)
PROC: 02HV33Z Insertion of Infusion Device into Superior Vena Cava, Percutaneous Approach (ICD-10-PCS; 2016-10-16)
PROC: 02HV33Z Insertion of Infusion Device into Superior Vena Cava, Percutaneous Approach (ICD-10-PCS; 2016-10-16)
PROC: B518YZA Fluoroscopy of Superior Vena Cava using Other Contrast, Guidance (ICD-10-PCS; 2016-10-16)
PROC: B548ZZA Ultrasonography of Superior Vena Cava, Guidance (ICD-10-PCS; 2016-10-16)
DX: T84.52XA Infection and inflammatory reaction due to internal left hip prosthesis, initial encounter (principal); B95.62 Methicillin resistant Staphylococcus aureus infection as the cause of diseases classified elsewhere
CPT/HCPCS: 73501; 76937; 77001; 80048; 80053; 80202; 85027; 85610; 85652; 86140; 87040; 87070; 87075; 87077; 87186; 87205; 88305; 97116; 97162; C1751; C1769; C1776; C1894; G8978-GP; G8979-GP; J0690; J1170; J1642; J1650; J2250; J2405; J3010; J3370